=== PATIENT | female | born 1950 | race Caucasian/White ===

== ENCOUNTER 2016-10-21 10:10 | Day surgery (SDC) | payer OTHER ==
--- NOTE | ~2016-10-21 | EGD ---
EGD REPORT [facility] [address] [address] NAME: JACKELINE LIMON : [birth year] STATUS : REG [facility]#: [id number] AGE: 66 ADM/REG DATE : 10/21/16 MR#: [id number] REPORT SERV DATE: 10/21/16 DICTATED BY: DATE: REPORT STATUS : Draft TRANSCRIBED BY: [employer] DATE: 10/21/16 [facility] Patient Name: Jackeline Limon Date of : 1950 Attending MD: VITOR EASTMAN MD Procedure Date No Time: 10/21/2016 Procedure: Upper GI endoscopy Indications: Cirrhosis with suspected esophageal varices Referring MD: LANCE OCONNOR Medicines: Monitored Anesthesia Care Complications: No immediate complications. Procedure: Pre-Anesthesia Assessment: - ASA Grade Assessment: IV - A patient with severe systemic disease that is a constant threat to life. After obtaining informed consent, the endoscope was passed under direct vision. Throughout the procedure, the patient's blood pressure, pulse, and oxygen saturations were monitored continuously. The GIF [id number] was introduced through the mouth, and advanced to the second part of duodenum. The upper GI endoscopy was accomplished without difficulty. The patient tolerated the procedure well. Findings: The examined esophagus was normal. There is no endoscopic evidence of Moses's esophagus, areas of erosion, hiatus hernia, ulcerations or varices in the entire esophagus. A few localized, small non-bleeding erosions were found in the gastric antrum. There were no stigmata of recent bleeding. Biopsies were taken with a cold forceps for histology. A single 8 mm semi-sessile polyp was found in the gastric antrum. Biopsies were taken with a cold forceps for histology. No other significant abnormalities were identified in a careful examination of the stomach. There is no endoscopic evidence of ulceration, varices or portal hypertension gastropathy in the entire examined stomach. Scalloped mucosa was found in the duodenal bulb. Biopsies were taken with a cold forceps for histology. The exam of the duodenum was otherwise normal. There is no endoscopic evidence of inflammation or ulceration in the entire examined duodenum. The cardia and gastric fundus were normal on retroflexion. Impression: - Normal esophagus. - Non-bleeding erosive gastropathy. Biopsied. EGD REPORT [place] [id number] [place]. [address] NAME: JACKELINE LIMON : [birth year] STATUS : REG [facility]#: [id number] AGE: 66 ADM/REG DATE : 10/21/16 MR#: [id number] REPORT SERV DATE: 10/21/16 DICTATED BY: DATE: REPORT STATUS : Draft TRANSCRIBED BY: [employer] DATE: 10/21/16 - A single gastric polyp. Biopsied. - Duodenal mucosal changes seen, suspicious for celiac disease. Biopsied. Recommendation: - Patient has a contact number available for emergencies. The signs and symptoms of potential delayed complications were discussed with the patient. Return to normal activities tomorrow. Written discharge instructions were provided to the patient. - Return to previous diet. - Discharge patient to home. - Continue present medications including omeprazole. - Await pathology results. - Repeat the upper endoscopy in 2 years for surveillance. - No aspirin, ibuprofen, naproxen, or other non-steroidal anti-inflammatory drugs. Procedure Code(s): --- Professional --- 01213, Esophagogastroduodenoscopy, flexible, transoral; with biopsy, single or multiple Diagnosis Code(s): --- Professional --- K31.9, Disease of stomach and duodenum, unspecified K31.7, Polyp of stomach and duodenum K74.60, Unspecified cirrhosis of liver CPT copyright 2013 [employer]. All rights reserved. The codes documented in this report are preliminary and upon photoresist contact printer review may be revised to meet current compliance requirements. VITOR EASTMAN MD 10/21/2016 11:44 AM This report has been signed electronically. Number of Addenda: 0 Note Initiated On: 10/21/2016 11:24 AM Scope Withdrawal Time 0 hours 0 minutes 0 seconds [id number] [id number]
[~2016-10-21 10:10] MED LIST: ACCUNE1 INH; ACET500CAP PO; ADVAIR250 INH; ALLERGY SHOTS IM; ATROVENTUD INH; ATV1 PO; AVASTIN; AVASTIN MC; B121000P IM; BENADRYL 50 MG50 MG PO; BENTYL10 PO; CALTRA600D PO; CLEOCIN300 MG PO; COLAZAL 750 MG750 MG PO; COLCRYS0.6 MG PO; COMBIVENT INH; COMBIVENT RESPIM4 GM INH; DCN100 PO; DIABETA5 PO; DIALYVITE800 MG PO; DIOV80 PO; DIOVAN40 MG PO; DONNATA1 OR; DONNATAL OR; EPIPEN0.3 IM; FLONASE NAS; FORTAMET1000 MG PO; GLUCPH PO; INTEGRA PLUS; IRON325 MG PO; KLOR-CON M1010 MEQ PO; KLOR-CON M2020 MEQ PO; L40 PO; LEXAPRO20 PO; LOM PO; LOP100 PO; LOP25 PO; LOP50 PO; LORT7 PO; MACROBID PO; MAGOX4 PO; METHOC750B PO; NAP500 PO; NEPHRO-VITE PO; NEUR300 PO; NEUR600 PO; NORCO1 TA1 PO; OXYCON10 PO; P20 PO; PENTASA500 MG PO; PEPCID40 MG PO; PR25 PO; PREDFORTE OPH; PRILO PO; PROAIR HFA INH; SOMATAB PO; SUPER B COMP PO; VITAMIN B12; VITAMIN D3 PO; VITD PO; VITE PO; VITE1000 PO; XIFAXAN550 MG PO; XOLAIR SC; Z100 PO; Z300 PO; ZOCOR20 PO; ZOFRAN4 PO; ZOLAIR; ZYRTEC ALLGY10 MG PO; [UNRECOGNIZED DRUG - OTHER]
== END 2016-10-21 23:59 | disposition home or self-care (01) ==
LOC: DMU 10:10
PROVIDERS: Internal Medicine Gastroenterology
PROC: 0DB68ZX Excision of Stomach, Via Natural or Artificial Opening Endoscopic, Diagnostic (ICD-10-PCS; 2016-10-21)
PROC: 0DB98ZX Excision of Duodenum, Via Natural or Artificial Opening Endoscopic, Diagnostic (ICD-10-PCS; 2016-10-21)
PROC: 0DB68ZX Excision of Stomach, Via Natural or Artificial Opening Endoscopic, Diagnostic (ICD-10-PCS; principal; 2016-10-21 11:30)
DX: K29.50 Unspecified chronic gastritis without bleeding (principal); K31.7 Polyp of stomach and duodenum; K31.9 Disease of stomach and duodenum, unspecified; I10 Essential (primary) hypertension; E78.00 Pure hypercholesterolemia, unspecified; K21.9 Gastro-esophageal reflux disease without esophagitis; J45.909 Unspecified asthma, uncomplicated; G47.33 Obstructive sleep apnea (adult) (pediatric); G89.29 Other chronic pain; J44.9 Chronic obstructive pulmonary disease, unspecified; M79.7 Fibromyalgia; M19.90 Unspecified osteoarthritis, unspecified site; M10.9 Gout, unspecified; E11.9 Type 2 diabetes mellitus without complications; F41.9 Anxiety disorder, unspecified; F32.9 Major depressive disorder, single episode, unspecified; D64.9 Anemia, unspecified; K58.9 Irritable bowel syndrome, unspecified; Z86.19 Personal history of other infectious and parasitic diseases; Z88.1 Allergy status to other antibiotic agents; Z88.0 Allergy status to penicillin; Z88.5 Allergy status to narcotic agent; Z88.8 Allergy status to other drugs, medicaments and biological substances; Z88.2 Allergy status to sulfonamides; Z90.89 Acquired absence of other organs; Z98.890 Other specified postprocedural states
CPT/HCPCS: 82962; 88305; 88312; 88342